=== PATIENT | female | born 1985 | race Caucasian/White ===

== ENCOUNTER 2017-07-23 10:57 | Inpatient (IN) | payer BC ==
[~2017-07-23] VITALS: Ht 182.9 cm; Wt 113.1 kg
[2017-07-23] MEDS ORDERED: SODIUM CHLORIDE 0.9% 500 ML IVB ONE (11:24)
[2017-07-23] MEDS ORDERED: PANTOPRAZOLE 40 MG/10 ML VIAL IV STA (11:24)
[2017-07-23] MEDS ORDERED: ONDANSETRON HCL 4 MG/2 ML VIAL IV ONE (11:30)
[2017-07-23] MEDS ORDERED: KETOROLAC TROMETH 30 MG/ML 1ML VIAL IV ONE (11:30)
[2017-07-23 11:53] LABS: Eosinophils # (auto) 0.1 uL; Hemoglobin 13.3 g/dL (12.2-16.2); Lymphocytes # (auto) 2.3 uL; Monocytes # (auto) 1.1 uL
[2017-07-23 11:55] LABS: Basophils # (auto) 0 uL; Basophils % (auto) 0.3 % (0.0-2.0); Eosinophils % (auto) 0.5 % (0.0-7.0); Hematocrit 41.2 % (36.0-46.0); Lymphocytes % (auto) 12.9 % (10.0-50.0); Mean Corpuscular Hemoglobin 25.4 pg (28.0-32.0); Mean Corpuscular Hgb Conc. 32.3 g/dL (32.0-36.0); Mean Corpuscular Volume 78.6 fL (80.0-100.0); Neutrophils # (auto) 14.5 uL; Neutrophils % (auto) 80.3 % (37.0-80.0); Platelet Count (auto) 546 10^3/uL (140-450); Red Blood Cells 5.25 10^6/uL (4.0-5.20); Red Cell Distribution Width 15.2 % (11.8-14.3)
[2017-07-23 11:58] LABS: Urine Bacteria NONE SEEN /hpf (None Seen); Urine Blood 1+ /uL (Negative); Urine Mucus FEW (None Seen); Urine Specific Gravity 1.024 (1.001-1.035); Urine WBC 11 /hpf (0 - 5)
[2017-07-23 12:24] LABS: Albumin 3.5 g/dL (3.4-5.0); BUN/Creatinine Ratio 8.3; Calcium 8.8 mg/dL (8.5-10.1); Potassium 4.5 mmol/L (3.5-5.1)
[2017-07-23 12:27] LABS: Bilirubin, Total 0.5 mg/dL (0.2-1.0); Total Protein 8.4 g/dL (6.4-8.2)
[2017-07-23] MEDS ORDERED: LEVETIRACETAM INJ 1,000 MG in D5W 5% 100 ML IV ONE (14:15)
[2017-07-23] MEDS ORDERED: HYDROmorphone HCL 2 MG/ML VL IV PRN (14:30)
[2017-07-23] MEDS ORDERED: HYDROcodone-ACET 5/325MG TAB PO PRN (14:30)
[2017-07-23] MEDS ORDERED: cefTRIAXone 1GM/10ml IVPUSH 10 ML IV ONE (14:30)
[2017-07-23] MEDS: D5W/SOD CHL 0.45%/KCL 20MEQ 1,000 ML IV SCH (15:17)
[2017-07-23] MEDS: metroNIDAZOLE 500MG/100ML 100 ML IV SCH ×2 (16:12→22:29)
[2017-07-23] MEDS: LEVETIRACETAM 500 MG TAB PO SCH ×2 (21:55→22:00)
[2017-07-23 22:00] VITALS: BP 131/76
[2017-07-24] MEDS: D5W/SOD CHL 0.45%/KCL 20MEQ 1,000 ML IV SCH ×3 (03:40→20:59)
[2017-07-24] MEDS: KETOROLAC TROMETH 30 MG/ML 1ML VIAL IV PRN ×2 (04:02→16:32)
[2017-07-24] MEDS: metroNIDAZOLE 500MG/100ML 100 ML IV SCH ×3 (05:46→22:43)
[2017-07-24 05:50] VITALS: BP 126/74
[2017-07-24 05:51] LABS: Basophils # (auto) 0 uL; Eosinophils # (auto) 0.2 uL; Monocytes # (auto) 0.8 uL; Neutrophils # (auto) 8.8 uL
[2017-07-24 05:57] LABS: Basophils % (auto) 0.4 % (0.0-2.0); Eosinophils % (auto) 1.7 % (0.0-7.0); Hematocrit 35.6 % (36.0-46.0); Hemoglobin 11.3 g/dL (12.2-16.2); Lymphocytes # (auto) 1.5 uL; Lymphocytes % (auto) 13.4 % (10.0-50.0); Mean Corpuscular Volume 79.7 fL (80.0-100.0); Monocytes % (auto) 6.7 % (0.0-12.0); Neutrophils % (auto) 77.8 % (37.0-80.0); Platelet Count (auto) 394 10^3/uL (140-450); Red Blood Cells 4.46 10^6/uL (4.0-5.20); Red Cell Distribution Width 15.3 % (11.8-14.3); White Blood Cell 11.3 10^3/uL (4.4-10.8)
[2017-07-24 06:01] LABS: Mean Corpuscular Hemoglobin 26.6 pg (28.0-32.0)
[2017-07-24 06:08] LABS: Albumin 2.9 g/dL (3.4-5.0); BUN/Creatinine Ratio 8.9; Bilirubin, Total 0.5 mg/dL (0.2-1.0); Calcium 7.8 mg/dL (8.5-10.1)
[2017-07-24 06:12] LABS: Partial Thromboplastin Time 30.8 sec (23.78-33.04); Prothrombin Time 10.7 sec (9.27-12.13)
[2017-07-24] MEDS ORDERED: HYDROcodone-ACET 10/325MG TAB PO PRN (08:30)
[2017-07-24] MEDS: HYDROcodone-ACET 10/325MG TAB PO PRN ×4 (08:42→20:59)
[2017-07-24 08:59] VITALS: BP 106/49
[2017-07-24] MEDS: cefTRIAXone 1GM/10ml IVPUSH 10 ML IV SCH (11:20)
[2017-07-24] MEDS: PANTOPRAZOLE 40 MG/10 ML VIAL IV SCH (11:20)
[2017-07-24] MEDS: LEVETIRACETAM 500 MG TAB PO SCH ×2 (11:20→20:59)
[2017-07-24 13:00] VITALS: BP 115/69
[2017-07-24 17:00] VITALS: BP 120/66
[2017-07-24] MEDS ORDERED: LEVE500T22 PO (19:45)
[2017-07-24] MEDS: ONDANSETRON HCL 4 MG/2 ML VIAL IV PRN (20:59)
[2017-07-24 22:22] VITALS: BP 155/93
[2017-07-25] VITALS (7 sets, daily range): BP systolic 91–147; BP diastolic 53–98
[2017-07-25] MEDS: KETOROLAC TROMETH 30 MG/ML 1ML VIAL IV PRN ×3 (01:23→21:12)
[2017-07-25 05:38] LABS: Basophils # (auto) 0 uL; Basophils % (auto) 0.3 % (0.0-2.0); White Blood Cell 10.1 10^3/uL (4.4-10.8)
[2017-07-25 05:41] LABS: Eosinophils # (auto) 0.2 uL; Eosinophils % (auto) 2.4 % (0.0-7.0); Hematocrit 37.3 % (36.0-46.0); Lymphocytes % (auto) 20.4 % (10.0-50.0); Mean Corpuscular Hemoglobin 25.8 pg (28.0-32.0); Mean Corpuscular Hgb Conc. 32.1 g/dL (32.0-36.0); Mean Corpuscular Volume 80.4 fL (80.0-100.0); Monocytes # (auto) 0.6 uL; Monocytes % (auto) 6.5 % (0.0-12.0); Neutrophils # (auto) 7.1 uL; Neutrophils % (auto) 70.4 % (37.0-80.0); Platelet Count (auto) 380 10^3/uL (140-450); Red Blood Cells 4.64 10^6/uL (4.0-5.20); Red Cell Distribution Width 14.6 % (11.8-14.3)
[2017-07-25] MEDS: D5W/SOD CHL 0.45%/KCL 20MEQ 1,000 ML IV SCH ×3 (06:30→22:59)
[2017-07-25 06:32] LABS: BUN/Creatinine Ratio 7.8; Bilirubin, Total 0.2 mg/dL (0.2-1.0); Calcium 8.2 mg/dL (8.5-10.1); Potassium 4.3 mmol/L (3.5-5.1); Total Protein 7.2 g/dL (6.4-8.2)
[2017-07-25] MEDS: metroNIDAZOLE 500MG/100ML 100 ML IV SCH ×3 (07:00→22:58)
[2017-07-25] MEDS ORDERED: ceFAZolin 1GM/100ML 50 ML IV ONE (07:05)
[2017-07-25] MEDS ORDERED: LIDOCAINE 1% HCL (LOCAL ANESTH.) INJ 20ML MDV ONE (07:17)
[2017-07-25] MEDS ORDERED: SUCCINYLCHOLINE CHLORIDE 20 MG/ML 10ML VIAL IV ONE (07:17)
[2017-07-25] MEDS ORDERED: MIDAZOLAM HCL 1MG/1ML-2 ML VIAL ONE (07:20)
[2017-07-25] MEDS ORDERED: ROCURONIUM 10MG/ML 10ML VIAL IV ONE (07:20)
[2017-07-25] MEDS ORDERED: PROPOFOL 10 MG/ML 20 ML IV ONE (07:20)
[2017-07-25] MEDS ORDERED: ONDANSETRON HCL 4 MG/2 ML VIAL IV ONE (07:45)
[2017-07-25] MEDS ORDERED: NALOXONE HCL 0.4 MG/ML VIAL IV PRN (07:45)
[2017-07-25] MEDS ORDERED: KETOROLAC TROMETH 60MG/2ML VIAL IM ONE (07:53)
[2017-07-25] MEDS ORDERED: GLYCOPYRROLATE 0.2 MG/ML 1ML VIAL ONE (08:14)
[2017-07-25] MEDS ORDERED: NEOSTIGMINE 1 MG/ML INJ (10mg/10ML VIAL) ONE (08:14)
[2017-07-25] MEDS: fentaNYL CITRATE 100 MCG/2 ML VL ONE ×3 (08:35→09:00)
[2017-07-25] MEDS ORDERED: fentaNYL CITRATE 100 MCG/2 ML VL IV ONE (10:00)
[2017-07-25] MEDS: PANTOPRAZOLE 40 MG/10 ML VIAL IV SCH (11:32)
[2017-07-25] MEDS: cefTRIAXone 1GM/10ml IVPUSH 10 ML IV SCH (11:32)
[2017-07-25] MEDS: LEVETIRACETAM 500 MG TAB PO SCH ×2 (11:32→21:18)
[2017-07-25] MEDS: ONDANSETRON HCL 4 MG/2 ML VIAL IV PRN (15:14)
[2017-07-25] MEDS: HYDROcodone-ACET 10/325MG TAB PO PRN (23:45)
[2017-07-26] MEDS: KETOROLAC TROMETH 30 MG/ML 1ML VIAL IV PRN ×2 (03:45→13:18)
[2017-07-26 05:00] VITALS: BP_SYST 112; BP_SYST 86; BP_DIAS 48; BP_DIAS 64
[2017-07-26 05:23] LABS: Basophils # (auto) 0 uL; Basophils % (auto) 0.1 % (0.0-2.0); Eosinophils # (auto) 0 uL; Neutrophils # (auto) 11.6 uL
[2017-07-26 05:24] LABS: Eosinophils % (auto) 0.1 % (0.0-7.0); Hematocrit 34.5 % (36.0-46.0); Hemoglobin 11.1 g/dL (12.2-16.2); Lymphocytes # (auto) 1.4 uL; Mean Corpuscular Hemoglobin 25.7 pg (28.0-32.0); Mean Corpuscular Hgb Conc. 32.3 g/dL (32.0-36.0); Mean Corpuscular Volume 79.6 fL (80.0-100.0); Monocytes % (auto) 7.1 % (0.0-12.0); Neutrophils % (auto) 82.7 % (37.0-80.0); Platelet Count (auto) 383 10^3/uL (140-450); Red Blood Cells 4.33 10^6/uL (4.0-5.20); Red Cell Distribution Width 14.9 % (11.8-14.3); White Blood Cell 14.1 10^3/uL (4.4-10.8)
[2017-07-26 05:42] LABS: Albumin 2.7 g/dL (3.4-5.0); BUN/Creatinine Ratio 4.2; Bilirubin, Total 0.3 mg/dL (0.2-1.0); Calcium 7.9 mg/dL (8.5-10.1); Potassium 4.1 mmol/L (3.5-5.1); Total Protein 6.8 g/dL (6.4-8.2)
[2017-07-26] MEDS: metroNIDAZOLE 500MG/100ML 100 ML IV SCH ×2 (06:48→14:26)
[2017-07-26] MEDS: ONDANSETRON HCL 4 MG/2 ML VIAL IV PRN (07:08)
[2017-07-26] MEDS: LEVETIRACETAM 500 MG TAB PO SCH (08:56)
[2017-07-26] MEDS: cefTRIAXone 1GM/10ml IVPUSH 10 ML IV SCH (08:56)
[2017-07-26] MEDS: HYDROcodone-ACET 10/325MG TAB PO PRN (08:56)
[2017-07-26] MEDS: PANTOPRAZOLE 40 MG/10 ML VIAL IV SCH (08:56)
[2017-07-26 09:00] VITALS: BP_SYST 116; BP_SYST 96; BP_DIAS 54; BP_DIAS 61
[2017-07-26] MEDS: D5W/SOD CHL 0.45%/KCL 20MEQ 1,000 ML IV SCH (09:06)
[2017-07-26 13:00] VITALS: BP 108/67
== END 2017-07-26 16:35 | disposition home or self-care (01) | DRG 419 ==
LOC: ER 11:01 → OVERFLOW 11:02 → WEST WING 18:20
PROVIDERS: ADMIT Internal Medicine; ATTEND Internal Medicine
PROC: 0FT44ZZ Resection of Gallbladder, Percutaneous Endoscopic Approach (ICD-10-PCS; principal; 2017-07-25 07:17)
DX: K80.00 Calculus of gallbladder with acute cholecystitis without obstruction (principal); G40.909 Epilepsy, unspecified, not intractable, without status epilepticus; I10 Essential (primary) hypertension; E66.01 Morbid (severe) obesity due to excess calories; E86.0 Dehydration; Z83.3 Family history of diabetes mellitus; Z82.49 Family history of ischemic heart disease and other diseases of the circulatory system; Z68.33 Body mass index [BMI] 33.0-33.9, adult
CPT/HCPCS: 36415; 76705; 80053; 81001; 82150; 83690; 84702; 85025; 85610; 85730; 86850; 86900; 86901; 96361; 96365; 96375; 99291; C9113; J0330; J0690; J1885; J2001; J2250; J2405; J2704; J3490; J7060